=== PATIENT | female | born 1970 | race Caucasian/White ===

== ENCOUNTER 2020-01-05 08:14 | Outpatient (CLI) | payer OTHER, SELFPAY ==
--- NOTE | 2020-01-05 08:31 | EST_ITS ---
Patient Info Name: Rosemary Alexis Age: 49 years : 1970 Gender: Female Ht: 62 in Wt: 130 lbs BSA: 1.62 m2 Exam Date: 01/05/2020 8:54 AM Exam Location: [facility] Pulmonary Patient Status: Outpatient Admit Date: 01/05/2020 Staff Ordering Physician: Marti Randolph NP Manager Art: Yanely Reid RDCS Attending Provider: HUSAM REYES Referring Physician: Agustín STILL; Exercise Technologist: Fernando Lopez RDCS, RT Exercise Physician: Husam Reyes DO Exam Type: CA stress echo Study Info Indications R42 - Dizziness and giddiness Treadmill exercise stress echocardiogram is performed. Summary 1. 1. Negative Aden exercise stress test for ischemic ST changes by ECG criteria. 2. 2. Good functional capacity, achieving 10 METs of workload. 3. 3. Appropriate HR response to exercise. 4. 4. Appropriate HR recovery at 1 minute post exercise. 5. 5. Baseline hypertension. 6. 6. Intermittent ectopic atrial rhythm and ectopic atrial tachycardia. 7. 7. Negative stress echocardiogram for ischemia by wall motion abnormality. 8. 8. Patient informed of the above results. Stress Echo Findings Left Ventricle Appropriate increase in LV endocardial thickness with systole. Appropriate augmentation of contractility with systole. No wall motion abnormality. Left Ventricle Normal LV systolic function, no wall motion abnormality. Protocol: Aden Stress ECG Details Stage: REST Duration (min): 2 min : 2 sec Speed (mph): 0.0 Grade (%): 0 HR (bpm): 82 SBP (mmHg): 151 DBP (mmHg): 80 METS: --- Stage: REST Duration (min): 11 min : 0 sec Speed (mph): 0.0 Grade (%): 0 HR (bpm): 82 SBP (mmHg): 151 DBP (mmHg): 80 METS: --- Stage: STAGE 1 Duration (min): 1 min : 0 sec Speed (mph): 1.7 Grade (%): 10 HR (bpm): 115 SBP (mmHg): 151 DBP (mmHg): 80 METS: --- Stage: STAGE 1 Duration (min): 2 min : 0 sec Speed (mph): 1.7 Grade (%): 10 HR (bpm): 121 SBP (mmHg): 151 DBP (mmHg): 80 METS: --- Stage: STAGE 1 Duration (min): 3 min : 0 sec Speed (mph): 1.7 Grade (%): 10 HR (bpm): 121 SBP (mmHg): 169 DBP (mmHg): 82 METS: --- Stage: STAGE 2 Duration (min): 1 min : 0 sec Speed (mph): 2.5 Grade (%): 12 HR (bpm): 134 SBP (mmHg): 169 DBP (mmHg): 82 METS: --- Stage: STAGE 2 Duration (min): 2 min : 0 sec Speed (mph): 2.5 Grade (%): 12 HR (bpm): 150 SBP (mmHg): 176 DBP (mmHg): 82 METS: --- Stage: STAGE 2 Duration (min): 3 min : 0 sec Speed (mph): 2.5 Grade (%): 12 HR (bpm): 155 SBP (mmHg): 176 DBP (mmHg): 82 METS: --- Stage: STAGE 3 Duration (min): 1 min : 0 sec Speed (mph): 3.4 Grade (%): 14 HR (bpm): 165 SBP (mmHg): 201 DBP (mmHg): 79 METS: --- Stage: STAGE 3 Duration (min): 2 min : 0 sec Speed (mph): 3.4 Grade (%): 14 HR (bpm): 173 SBP (mmHg): 201 DBP (mmHg): 79 METS: ---
== END 2020-01-05 08:15 | disposition home or self-care (01) ==
PROVIDERS: PCP Family Medicine; Visit Provider Nurse Practitioner
DX: R42 Dizziness and giddiness (principal); I10 Essential (primary) hypertension
CPT/HCPCS: 93351